=== PATIENT | female | born 1985 | race Caucasian/White ===

== ENCOUNTER → 2017-01-11 | Day surgery (SDC) | payer MEDICAID, OTHER ==
[~2017-01-11] VITALS: Ht 157.5 cm; Wt 99.8 kg
[~2017-01-11] MED LIST: BUPIVACAINE HCL 0.25% 30 ML VIAL As Ordered ONE; HYDROmorphone HCL 2 MG/ML 1ML VIAL (J1170) As Ordered ONE; IBUP800T23 PO; KETOROLAC 30 MG/ML VIAL (J1885) IV PRN; KETOROLAC 30 MG/ML VIAL (J1885) IV SCH; LIDOCAINE 2% INJ 100 MG/5 ML SDV (FOR ANES.) As Ordered ONE; LR 1,000 ML IV ONE; LR 1,000 ML IV SCH; MEPERIDINE INJ 25 MG/ML VIAL (J2175) IV PRN; METOCLOPRAMIDE INJ 10MG/2ML VIAL (J2765) IV PRN; MIDAZOLAM INJ 2 MG/2 ML VIAL (J2250) As Ordered ONE; ONDANSETRON 4MG/2ML VIAL (J2405) As Ordered ONE; ONDANSETRON 4MG/2ML VIAL (J2405) IV PRN; ORTHTAB6 PO; PERCOCET 5MG/325MG TAB PO PRN; PERCOCET PO; PROPOFOL 200 MG/20 ML VIAL As Ordered ONE; ROCURONIUM BROMIDE 50 MG/5 ML VIAL As Ordered ONE; SUCCINYLCHOLINE 100 MG/5 ML SYRINGE (J0330) As Ordered ONE; dexameTHASONE 4 MG/ML 1ML VIAL (J1100) As Ordered ONE; fentaNYL 100 MCG/2 ML INJECTION (J3010) As Ordered ONE
[2017-01-11 10:50] LABS: MEAN CORPUSCULAR HEMOGLOBIN 28.1 pg (27.0-33.0); MEAN CORPUSCULAR HGB CONC 32.9 g/dl (32.0-36.5); MEAN CORPUSCULAR VOLUME 85.6 fl (80.0-96.0); RED CELL DISTRIBUTION WIDTH 12.6 % (11.5-14.5); WHITE BLOOD COUNT 8.3 K/mm3 (4.0-10.0)
[2017-01-11 11:35] LABS: CONTROL LINE HCG INT CTR LINE PRESENT
[2017-01-11] MEDS: PERCOCET 5MG/325MG TAB PO PRN ×2 (14:54→15:47)
[2017-01-11] MEDS: fentaNYL 100 MCG/2 ML INJECTION (J3010) IV PRN ×4 (15:05→15:43)
--- NOTE | 2017-01-11 15:19 | RO ---
DATE OF PROCEDURE: 01/11/2017 PREPROCEDURE DIAGNOSIS: Satisfied parity with undesired fertility. POSTPROCEDURE DIAGNOSIS: Satisfied parity with undesired fertility. PROCEDURE PERFORMED: Diagnostic laparoscopy with bilateral tubal ligation using Filshie clips. SURGEON: Michelle Thomas MD GLOBAL COMPENSATION ANALYST: COURT Zamora. ANESTHESIA: General endotracheal anesthesia. ESTIMATED BLOOD LOSS: 5 mL. INTRAVENOUS FLUIDS: 1 liter Lactated Ringer's solution. URINE OUTPUT: 300 mL. SPECIMENS: None. PREOPERATIVE ANTIBIOTICS: None. INFECTION CLASSIFICATION: 1 OPERATIVE FINDINGS: Patient with normal pelvic anatomy to include posterior, anterior cul-de-sac, bilateral adnexa. The appendix was visualized and appeared to be normal, normal appearing liver edge. INDICATION FOR OPERATION: The patient is a 31-year-old 1, para 1 who presents with satisfied parity and undesired fertility. She has been thoroughly counseled on options for control and desires sterilization. DESCRIPTION OF OPERATION: After informed consent was obtained and written consent was reviewed, the patient was brought to the operating room where general endotracheal anesthesia was obtained. She was then placed in lithotomy position and was prepped and draped in a normal sterile fashion. A time out in the operating room was then performed identifying the patient, procedure to be performed, as well as drug allergies. A bivalve speculum was then placed in the vaginal revealing the cervix. The anterior lip of the cervix was grasped with a single tooth tenaculum. A Hulka tenaculum was then advanced through the cervical os as a means to manipulate the uterus. A single tooth tenaculum and speculum was then removed. A Mcintosh catheter was then placed and set to gravity. Gloves were changed and attention was turned to the patient's abdomen where 0.25% Marcaine was infused in the umbilical region. Incision was made and a 5 mm trocar and sleeve was advanced through this incision. Laparoscope was then placed revealing intra-abdominal placement. A pneumoperitoneum was then obtained with CO2 gas. A second port was placed and this was 2 cm above the pubic symphysis in the midline. This area was infused with 0.25% Marcaine. Incision was made in this area. An 8 mm trocar and sleeve was then advanced through this incision under direct visualization. The abdomen was then surveyed with the above noted findings. The right fallopian tube was followed out to the fimbriated end. Using a Filshie clip applicator, a Filshie clip was applied in the mid isthmus portion of the right fallopian tube with good blanching noted. In a similar fashion the left fallopian tube was followed out to the fimbriated end and Filshie applicator was then reloaded and a Filshie clip was applied in the mid isthmus portion of the fallopian tube. Instruments were then removed from the patient's abdomen, pneumoperitoneum was then released. The trocars were removed. Incisions were closed with #4-0 Monocryl and dressed with DERMABOND. The Hulka tenaculum, as well as Mcintosh catheter was removed. Tenaculum sites were inspected and noted to be hemostatic. The patient was then taken out of lithotomy position, was awakened from general anesthesia and was taken to the recovery in stable condition. Counts were correct.
[2017-01-11 18:08] VITALS: BP 126/67
== END | disposition home or self-care (01) ==
LOC: M SDC 10:20
PROVIDERS: ATTEND Obstetrics & Gynecology
DX: Z30.2 Encounter for sterilization (principal); E66.9 Obesity, unspecified; Z79.3 Long term (current) use of hormonal contraceptives
CPT/HCPCS: 36415; 58671; 84703; 85027; 86850; 86900; 86901; A4649; J0330; J1100; J1170; J2250; J2405; J2765; J3010